=== PATIENT | male | born 1990 | race Caucasian/White ===

== ENCOUNTER 2021-12-08 21:55 | Emergency (ER) | payer MEDICAID, OTHER ==
[~2021-12-08] VITALS: Ht 165.1 cm; Wt 83.2 kg
[2021-12-08 22:36] VITALS: BP 132/85
[2021-12-08] MEDS ORDERED: LIDO700A15 TP (23:19)
[2021-12-08] MEDS ORDERED: ACET-66 PO (23:19)
== END 2021-12-08 23:36 | disposition home or self-care (01) ==
LOC: EMS 22:06
DX: M54.50 Low back pain, unspecified (principal); M54.6 Pain in thoracic spine; G89.29 Other chronic pain; M79.661 Pain in right lower leg; M54.31 Sciatica, right side
CPT/HCPCS: 99282; 99283